=== PATIENT | male | born 1985 | race Hispanic/Latino ===

== ENCOUNTER 2021-03-22 22:21 | Emergency (ER) | payer SELFPAY ==
[2021-03-22] MEDS ORDERED: Boostrix 0.5 ML (Tdap) VIAL ONE (22:49)
[2021-03-22] MEDS ORDERED: HYDROcodone/Acetaminophen 5/325 mg Tablet ONE (22:49)
[2021-03-22] MEDS ORDERED: Triple Antibiotic Oint 1 GM Packet ONE (23:37)
== END 2021-03-22 23:41 | disposition home or self-care (01) ==
LOC: CSHERS 22:21
DX: T23.252A Burn of second degree of left palm, initial encounter (principal); X08.8XXA Exposure to other specified smoke, fire and flames, initial encounter; Z23 Encounter for immunization
CPT/HCPCS: 16020; 90471; 90715